=== PATIENT | female | born 2005 | race Caucasian/White ===

== ENCOUNTER 2023-05-31 17:55 | Emergency (ER) | payer OTHER ==
[2023-05-31 18:15] VITALS: BP 118/72; PULSE 72; RESP 16; TEMP 98.2; BMI 25.0
[2023-05-31] MEDS ORDERED: ACETAMINOPHEN 325 MG TABLET (FP) PO ONE (18:37)
[2023-05-31] MEDS ORDERED: ACETAMINOPHEN 500 MG TABLET (FP) ONE (18:39)
== END 2023-05-31 18:49 | disposition home or self-care (01) ==
LOC: FER 17:55 → SUPCPDRO 17:55 → FER 18:49
DX: S09.90XA Unspecified injury of head, initial encounter (principal); R51.9 Headache, unspecified; W20.8XXA Other cause of strike by thrown, projected or falling object, initial encounter; Y93.89 Activity, other specified; Y92.821 Forest as the place of occurrence of the external cause
CPT/HCPCS: 99283-25